=== PATIENT | female | born 1965 ===

== ENCOUNTER → 2019-10-22 09:33 | Outpatient (CLI) | payer OTHER, SELFPAY ==
[2019-10-22 12:01] LABS: Alanine Aminotransferase 27 IU/L (<35); Albumin 4.8 g/dL (3.5-5.0); Albumin Globulin Ratio 1.5 (1.0-2.8); Alkaline Phosphatase 114 U/L (38-126); Aspartate Aminotransferase 32 IU/L (14-36); Bilirubin Total 0.4 mg/dL (0.2-1.3); Bilirubin Unconjugated 0.3 mg/dL (0.0-1.1); Globulin 3.2 g/dL (1.7-4.1); HEMOLYSIS < 15 (0-50)
== END ==
PROVIDERS: PCP General Practice; Referring Provider General Practice; Visit Provider Internal Medicine Gastroenterology
DX: R94.5 Abnormal results of liver function studies (principal)
CPT/HCPCS: 36415; 80076

== ENCOUNTER → 2019-11-07 10:46 | Outpatient (CLI) | payer OTHER, SELFPAY ==
--- NOTE | 2019-11-07 | DI.US.S_ITS ---
PROCEDURE: US PELVIC COMPLETE INDICATIONS: PELVIC PAIN TECHNIQUE: Real-time scanning was performed of the pelvic organs, with image documentation. Additional endovaginal scanning was necessary due to incomplete visualization of the adnexal and endometrial structures by transabdominal scanning. COMPARISON: None. FINDINGS: Transabdominal scanning: Limited scanning through the kidneys shows no hydronephrosis. No pathologic free abdominal or pelvic fluid. Endovaginal scanning: Uterus: The uterus is surgically absent. Ovaries: The right ovary measures 1.5 x 1.5 x 1.1 cm for a volume of 1.3 cc. The left ovary measures 1.8 x 1.2 x 1.7 for a volume of 1.9 cc. No ovarian cysts or solid masses. No suspicious fluid or mass visible in the pelvis. IMPRESSION: 1. Age-appropriate pelvic ultrasound post hysterectomy. Dictated by: Danni Gamino M.D. on 11/07/2019 at 11:53 Approved by: Danni Gamino M.D. on 11/07/2019 at 11:55
--- NOTE | 2019-11-07 | DI.US.S_ITS ---
PROCEDURE: US ABDOMEN COMPLETE INDICATIONS: ABDOMINAL PAIN TECHNIQUE: Real-time scanning was performed of the abdominal and retroperitoneal organs, with image documentation. COMPARISON: None. FINDINGS: Liver: Liver is normal in size and homogeneous in echotexture. Gallbladder: The gallbladder is normal without stones or sludge. Normal wall thickness of 1.0 mm. No pericholecystic fluid. Biliary ducts: Intrahepatic bile ducts are non-dilated. Extrahepatic bile duct caliber measures 5 mm. Normal is 6-7 mm or less in diameter, or 10 mm or less post-cholecystectomy. Pancreas: Visualized portions of the pancreas are sonographically normal. Spleen: Spleen is normal in size and homogeneous in echotexture. Kidneys: Kidneys are normal in size and echotexture. Right kidney measures 9.6 cm long; left kidney measures 9.3 cm long. No hydronephrosis or nephrolithiasis. No solid masses. Aorta: Visualized aorta is normal in caliber at less than 3 cm. Iliacs: Proximal common iliac arteries are normal in caliber at less than 2.5 cm. IVC: Intrahepatic inferior vena cava is patent. Miscellaneous: No free abdominal fluid. IMPRESSION: Normal abdominal ultrasound. Dictated by: Danni Gamino M.D. on 11/07/2019 at 11:55 Approved by: Danni Gamino M.D. on 11/07/2019 at 11:57
== END ==
PROVIDERS: PCP General Practice; Referring Provider Internal Medicine Gastroenterology; Visit Provider Internal Medicine Gastroenterology
DX: R10.2 Pelvic and perineal pain (principal); R10.9 Unspecified abdominal pain; Z90.710 Acquired absence of both cervix and uterus
CPT/HCPCS: 76700; 76830; 76856

== ENCOUNTER → 2019-11-22 14:43 | Outpatient (CLI) | payer OTHER, SELFPAY ==
--- NOTE | 2019-11-22 | DI.ECHO.S_ITS ---
[facility]---------+ [facility] +---------+ : : [address] : : : : [id number] : : : : Phone: [phone] Echocardiogram Report + + :Name: STEVE TALAMANTES Study Date: 11/22/2019 Height: 61 in : :[facility] Weight: 126 lb : : Gender: Female BSA: 1.6 m2 : :: 1965 Age: 54 yrs BP: 114/70 mmHg: :Reason For Study: Palpitations : :Ordering Physician: Kal : :Artie Galeana Performed By: Nely Bond : + + Interpretation Summary The left ventricle is normal in size, wall thickness, and systolic function without any focal wall motion abnormalities with the ejection fraction visually estimated to be 55-60%. Diastolic parameters suggest probable normal left ventricular diastolic function and normal filling pressures. The right ventricle is normal in size and function. The right ventricular systolic pressure is estimated to be at least 25 mmHg based on an estimated right atrial pressure of 3 mm Hg. Both atria are normal in size. There is mild mitral regurgitation and mild tricuspid regurgitation. There is no other significant valvular heart disease. Procedure: A two-dimensional transthoracic echocardiogram with color flow and Doppler was performed. The study quality was technically adequate. There is no prior echocardiogram noted for this patient. The patient was in normal sinus rhythm during the exam. Left Ventricle: The left ventricle is normal in size, wall thickness, and systolic function without any focal wall motion abnormalities. There is no ventricular septal defect visualized. The ejection fraction is estimated to be 55-60%. Diastolic parameters suggest probable normal left ventricular diastolic function and normal filling pressures. Right Ventricle: The right ventricle is normal in size and function. Atria: Both atria are normal in size. The interatrial septum is intact with no evidence for an atrial septal defect. There is no Doppler evidence for an interatrial shunt. Mitral Valve: The mitral valve leaflets appear mildly thickened, but open well. There is mild mitral regurgitation. Aortic Valve: The aortic valve is normal in structure and function. The aortic valve is trileaflet. The aortic valve opens well. No aortic regurgitation is present. Tricuspid Valve: The tricuspid valve is not well visualized, but is grossly normal. There is mild tricuspid regurgitation. The right ventricular systolic pressure is estimated to be at least 25 mmHg based on an estimated right atrial pressure of 3 mm Hg. Pulmonic Valve: The pulmonic valve is not well visualized. There is a trace or physiologic amount of pulmonic regurgitation. There is no other significant valvular heart disease. Great Vessels: The aortic root is normal size. The ascending aorta is normal in size. The aortic arch is normal in size. The IVC is of normal diameter and collapses greater than 50% with a sniff. This suggests a low right atrial pressure of 3 mm Hg. Pericardium/ Pleura There is no pericardial effusion. MMode/2D Measurements & Calculations LVIDd: 3.9 cm LVOT diam: 1.8 cm LVIDs: 2.6 cm Ao root diam: 3.1 cm FS: 34.3 % asc Aorta Diam: 3.1 cm EPSS: 0.50 cm Ao Arch Diam (Prox Trans): 2.6 cm IVSd: 0.64 cm LVPWd: 0.65 cm LV pinto. diameter/BSA (cm/m^2): 2.5 LV sys. diameter/BSA (cm/m^2): 1.7 LA A2 area: 15.4 cm2 RA long axis: 3.7 cm LA A4 area: 14.0 cm2 RA area: 13.1 cm2 LA length (vol): 4.6 cm RA vol: 39.7 ml LA vol: 39.5 ml RA : 25.6 ml/m2 LA vol index: 25.4 ml/m2 IVC diam: 1.5 cm RVD1 (basal): 3.2 cm RVD2 (mid): 2.3 cm TAPSE: 1.8 cm Doppler Measurements & Calculations Ao V2 max: 107.7 cm/sec LVOT Max Arcenio: 81.3 cm/sec Ao V2 mean: 73.4 cm/sec LV V1 max P.6 mmHg Ao max P.6 mmHg LV V1 VTI: 16.4 cm Ao mean P.4 mmHg THEODORA(I,D): 1.9 cm2 Ao V2 VTI: 21.4 cm THEODROA(V,D): 1.9 cm2 sev ratio: 0.77 THEODORA indexed to BSA (cm^2/m^2): 1.2 MV E max arcenio: 78.1 cm/sec TR max arcenio: 232.8 cm/sec MV A max arcenio: 65.4 cm/sec TR max P.7 mmHg MV E/A: 1.2 PA V2 max: 64.7 cm/sec Med Peak E' Arcenio: 8.4 cm/sec PA V2 mean: 42.8 cm/sec E/E' med: 9.3 PA mean P.82 mmHg Lat Peak E' Arcenio: 15.3 cm/sec PA Accel Time: 0.10 sec E/E' lat: 5.1 E/e' average: 7.2 MV dec time: 0.14 sec MV P1/2t: 41.1 msec MV P1/2t max arcenio: 78.1 cm/sec SV(LVOT): 40.8 ml MVA(P1/2t): 5.3 cm2 Reading Physician:TATYANA
== END ==
PROVIDERS: PCP General Practice; Referring Provider Hospitalist; Visit Provider Hospitalist
DX: I08.1 Rheumatic disorders of both mitral and tricuspid valves (principal); R00.2 Palpitations
CPT/HCPCS: 93306

== ENCOUNTER → 2022-03-06 09:31 | Outpatient (CLI) | payer OTHER, SELFPAY ==
--- NOTE | 2022-03-06 09:32 | DI.MRI.S_ITS ---
PROCEDURE: MR WRIST RT WO CON INDICATIONS: RIGHT WRIST PAIN TECHNIQUE: Noncontrast coronal proton density fast spin echo and T2 fast spin echo with fat saturation; coronal 3-D gradient echo, axial T1 spin echo and T2 fast spin echo with fat saturation, sagittal T1 spin echo through the wrist. COMPARISON: None. FINDINGS: Image quality: Excellent. Bones and cartilage: The carpal bones are normally aligned. No bone marrow contusions or fractures. No evidence for avascular necrosis. Mild degenerative changes are seen at the 1st carpometacarpal and 1st metacarpophalangeal joints. There is neutral ulnar variance. Carpal ligaments: The scapholunate and lunotriquetral ligaments appear intact. The pisohamate ligament appears intact. Triangular fibrocartilage complex: Increased signal is seen at the ulnar styloid and ulnar foveal attachments of the distal radioulnar joint, which may represent chronic partial tearing. There is a small amount of fluid in the distal radioulnar joint. The triangle fibrocartilage disc and the radial attachments appear to be intact. Tendons and soft tissues: The carpal tunnel structures appear normal, including the median nerve. The ulnar nerve appears normal within Guyon's canal. There is chronic partial tearing of the extensor carpi ulnaris tendon at the level of the ulnar groove and proximal carpal row. The remaining extensor tendon compartments demonstrate normal morphology, without pathologic tendon sheath fluid. A lobular ganglion cyst is seen at the volar radial aspect of the wrist measuring approximately 10 x 4 x 5 mm. A ganglion cyst at the dorsum of the wrist measures 6 x 4 x 3 mm. IMPRESSION: 1. Suspected partial tearing of the ulnar attachments of the triangular fibrocartilage. Small amount of fluid is seen in the distal radioulnar joint. 2. 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 3. Mild degenerative changes of the 1st carpometacarpal and 1st metacarpophalangeal joints. 4. Small ganglion cyst at the dorsum of the wrist measuring 6 mm and at the volar medial aspect of the wrist measuring 10 mm. Dictated by: Kalin Waite M.D. on 03/07/2022 at 9:19 Approved by: Kalin Waite M.D. on 03/07/2022 at 9:27
== END ==
PROVIDERS: PCP Physician Assistant; Referring Provider Physician Assistant; Visit Provider Physician Assistant
DX: M25.431 Effusion, right wrist (principal); S66.811A Strain of other specified muscles, fascia and tendons at wrist and hand level, right hand, initial encounter; M67.431 Ganglion, right wrist
CPT/HCPCS: 73221

== ENCOUNTER 2023-07-13 15:30 | Emergency (ER) | payer OTHER, SELFPAY ==
[2023-07-13] VITALS (10 sets, daily range): BP systolic 122–161; BP diastolic 62–82; PULSE 80–106; RESP 16–18; TEMP 37.1; O2SAT 86–97; BMI 22.8
[2023-07-13] MEDS: KETOROLAC 30 MG/ML VIAL 15 MG IV (17:03)
[2023-07-13] MEDS: SODIUM CHLORIDE 0.9% 1,000 ML 1000 ML IV (17:03)
[2023-07-13] MEDS: METOCLOPRAMIDE 10 MG/2 ML INJ IV (17:03)
--- NOTE | 2023-07-13 17:33 | ED.HA ---
HPI - Headache General Chief Complaint: Headache Stated Complaint: Neck pain with migraine T-3 Time Seen by Provider: 07/13/23 16:51 Source: patient, RN notes reviewed and old records reviewed Mode of arrival: Ambulatory Limitations: no limitations Related Data Allergies Allergy/AdvReac Type Severity Reaction Status Date / Time meperidine [From Demerol] Allergy Verified 07/13/23 15:52 Review of Systems Review of Systems ROS Unobtainable: All systems reviewed & are unremarkable except as noted in HPI and below Patient History Social History Smoking Status: Never smoker Smoking Status: Never smoker Substance Use Type: does not use Exam Initial Vital Signs Initial Vital Signs: Vital Signs Temperature 98.8 F 07/13/23 15:32 Pulse Rate 104 H 07/13/23 15:32 Respiratory Rate 16 07/13/23 15:32 Blood Pressure 161/81 H 07/13/23 15:32 Pulse Oximetry 97 07/13/23 15:32 Oxygen Delivery Method Room Air 07/13/23 15:32 Course Orders Ordered: ED Orders 07/13/23 17:43 CT angio head and neck Stat CBC Auto Diff [Complete Blood Count AUTO DIFF] Stat CMP [Comprehensive Metabolic Panel] Stat Sodium Chloride (Normal Saline 0.9%) 1,000 mls @ 1,000 mls/hr IV BOLUS ONE Stop: 07/13/23 17:50 Last Admin: 07/13/23 17:03 Dose: 1,000 mls/hr Documented By: PETEY Discontinued Medications Ketorolac Tromethamine (Ketorolac 30 Mg/Ml Vial) 15 mg IV NOW ONE Stop: 07/13/23 16:52 Last Admin: 07/13/23 17:03 Dose: 15 mg Documented By: PETEY Metoclopramide HCl (Metoclopramide 10 Mg/2 Ml Inj) 10 mg IV NOW ONE Stop: 07/13/23 16:52 Last Admin: 07/13/23 17:03 Dose: 10 mg Documented By: PETEY Vital Signs Vital signs: Vital Signs - 8 hr 07/13/23 15:32 Temperature 98.8 F Pulse Rate 104 H Respiratory Rate 16 Blood Pressure 161/81 H Pulse Oximetry 97 Oxygen Delivery Method Room Air Discharge Plan Departure Referrals: Adwoa Leigh PA-C [Primary Care Provider] -
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
--- NOTE | 2023-07-13 17:43 | DI.CT.S_ITS ---
PROCEDURE: CT ANGIO HEAD AND NECK INDICATIONS: left neck pain, migraine, change pattern TECHNIQUE: After the administration of intravenous contrast, 1 mm thick sections acquired from the aortic arch through the [place] of [place]. 3-dimensional dcuypxv-qyafbcosf-ametfjuwaa (MIP) and/or volume rendering reformats were acquired of the central intracranial vasculature and neck separately. For radiation dose reduction, the following was used: automated exposure control, adjustment of mA and/or kV according to patient size. COMPARISON: None. FINDINGS: Image quality: Limited by bolus timing, with venous contamination. BRAIN: CSF spaces: Ventricles are normal in size and shape. Basal cisterns are patent. No extra-axial fluid collections. Brain: No significant abnormality of the brain can be seen. Skull and face: Calvarium and facial bones appear intact, without suspicious lesions. Orbits appear normal. Sinuses: Sinuses and mastoids are clear. HEAD CT ANGIOGRAPHY: Anterior circulation: Intracranial internal carotid arteries are normal in size and flow. The flow within the paired anterior cerebral arteries is normal and symmetric. The flow within the middle cerebral arteries is normal and symmetric. The anterior communicating artery is seen. No aneurysms are seen. Posterior circulation: Visualized portions of the vertebral arteries demonstrate normal caliber, and join to form a normal appearing basilar artery. Flow within the posterior cerebral arteries is normal and symmetric. No aneurysms are seen. NECK CT ANGIOGRAPHY: Carotid system: The great vessels demonstrate a conventional anatomy as they arise from the aortic arch. The origins of the common carotid arteries appear patent. The common carotid arteries demonstrate normal caliber and courses. The bifurcation regions are both widely patent. The internal carotid arteries demonstrate normal calibers and courses. Posterior circulation: The origins of the vertebral arteries both appear widely patent. The more superior extracranial portions of both vertebral arteries also demonstrate normal courses and calibers. They join to form a normal appearing basilar artery. Soft tissues: Visualized neck soft tissues demonstrate no suspicious abnormalities. Bones: No suspicious bony lesions. Visualized cervical spine appears normally aligned. IMPRESSION: CT angiogram within normal limits, without a cause of the patient's presenting history identified. Any quantitative measurements of stenosis were performed using NASCET criteria. Dictated by: Caleb Bennett M.D. on 07/13/2023 at 17:20 Approved by: Caleb Bennett M.D. on 07/13/2023 at 17:21
[2023-07-13] MEDS: DEXAMETHASONE 10 MG/ML VIAL IV (17:52)
--- NOTE | 2023-07-13 18:26 | ED_ITS ---
HPI - Headache General Chief Complaint: Headache Stated Complaint: Neck pain with migraine T-3 Time Seen by Provider: 07/13/23 16:51 Source: patient Mode of arrival: Ambulatory Limitations: no limitations History of Present Illness HPI Narrative: 57-year-old female. Has a history of migraine headaches. Normally takes sumatriptan for this. Has had a headache for the past 3 days. Sumatriptan has not helped her symptoms. She now has left-sided neck discomfort that she describes as ?lightning bolts? that go up the back of her neck and to the left side of her cheek. She denies any fevers. No trauma. Related Data Allergies Allergy/AdvReac Type Severity Reaction Status Date / Time meperidine [From Demerol] Allergy Verified 07/13/23 15:52 Review of Systems Constitutional Constitutional: Reports system reviewed and no additional complaints, except as documented Eyes Eyes: Reports system reviewed and no additional complaints, except as documented ENT Ears, Nose, Mouth, and Throat: Reports system reviewed and no additional complaints, except as documented Musculoskeletal Musculoskeletal: Reports system reviewed and no additional complaints, except as documented Integumentary/Breasts Skin/Breast: Reports system reviewed and no additional complaints, except as documented Neurologic Neurologic: Reports system reviewed and no additional complaints, except as documented Hematologic/Lymphatic On Anticoagulants: No Patient History Social History Smoking Status: Never smoker Smoking Status: Never smoker Substance Use Type: does not use Exam Initial Vital Signs Initial Vital Signs: Vital Signs Temperature 98.8 F 07/13/23 15:32 Pulse Rate 104 H 07/13/23 15:32 Respiratory Rate 16 07/13/23 15:32 Blood Pressure 161/81 H 07/13/23 15:32 Pulse Oximetry 97 07/13/23 15:32 Oxygen Delivery Method Room Air 07/13/23 15:32 Const General: cooperative and comfortable HENMT Head: normal to inspection and normocephalic Resp Effort & Inspection: normal respiratory effort Cardio Rate: regular rate Back/Spine/Pelvis Cervical Spine: cervical muscular tenderness and No cervical spinal tenderness Thoracic/Lumbar Spine: No paraspinal tenderness, No thoraco-lumbar spasm and No thoracic spinal tenderness Skin General: no rashes or lesions noted Neuro General: patient alert and patient awake Extrem General: capillary refill normal Course Orders Ordered: ED Orders 07/13/23 17:43 CT angio head and neck Stat 07/13/23 18:15 CBC Auto Diff [Complete Blood Count AUTO DIFF] Stat CMP [Comprehensive Metabolic Panel] Stat Discontinued Medications Dexamethasone (Dexamethasone 10 Mg/Ml Vial) 10 mg IV NOW ONE Stop: 07/13/23 17:49 Last Admin: 07/13/23 17:52 Dose: 10 mg Documented By: PETEY Hydromorphone HCl (Hydromorphone 0.5 Mg Inj) 0.5 mg IV NOW ONE Stop: 07/13/23 18:37 Last Admin: 07/13/23 18:44 Dose: 0.5 mg Documented By: PETEY Sodium Chloride (Normal Saline 0.9%) 1,000 mls @ 1,000 mls/hr IV BOLUS ONE Stop: 07/13/23 17:50 Last Infusion: 07/13/23 18:07 Dose: Infused Documented By: Admin: 07/13/23 17:03 Dose: 1,000 mls/hr Documented By: PETEY Ketorolac Tromethamine (Ketorolac 30 Mg/Ml Vial) 15 mg IV NOW ONE Stop: 07/13/23 16:52 Last Admin: 07/13/23 17:03 Dose: 15 mg Documented By: PETEY Metoclopramide HCl (Metoclopramide 10 Mg/2 Ml Inj) 10 mg IV NOW ONE Stop: 07/13/23 16:52 Last Admin: 07/13/23 17:03 Dose: 10 mg Documented By: PETEY Vital Signs Vital signs: Vital Signs - 8 hr 07/13/23 15:32 07/13/23 15:36 07/13/23 16:00 Temperature 98.8 F Pulse Rate 104 H 106 H 95 H Respiratory Rate 16 Blood Pressure 161/81 H Pulse Oximetry 97 96 93 Oxygen Delivery Method Room Air 07/13/23 16:39 07/13/23 16:40 07/13/23 16:40 Temperature Pulse Rate 96 H 97 H Respiratory Rate Blood Pressure 137/82 Pulse Oximetry 96 97 Oxygen Delivery Method 07/13/23 17:05 07/13/23 17:05 07/13/23 17:30 Temperature Pulse Rate 89 93 H Respiratory Rate Blood Pressure 125/64 Pulse Oximetry 97 90 L Oxygen Delivery Method 07/13/23 18:45 07/13/23 19:00 Temperature Pulse Rate 91 H 80 Respiratory Rate 18 Blood Pressure Pulse Oximetry 86 L 96 Oxygen Delivery Method MDM - Headache Lab Data Attestation: I reviewed the patient's lab results. 07/13/23 18:15 07/13/23 18:15 Labs: Lab Results 07/13/23 Range/Units 18:15 WBC 4.0 L (4.5-11.0) X10^3/uL RBC 4.42 (4.0-5.2) X10^6/uL Hgb 12.8 (12.0-16.0) g/dL Hct 38.2 (36-46) % MCV 86.4 (80-100) fL MCH 29.0 (26-34) PG MCHC 33.6 (30-36) % RDW 13.7 (11.6-14.8) % Plt Count 188 (150-400) X10^3/uL Neut % (Auto) 43.5 L (50-75) % Lymph % (Auto) 42.6 H (25-40) % [place] % (Auto) 12.8 (3-14) % Eos % (Auto) 0.6 L (2-4) % Baso % (Auto) 0.5 (0-2) % Neut # (Auto) 1700 (4694-6271) /uL Lymph # (Auto) 1700 (8516-1442) /uL [place] # (Auto) 500 (0-900) /uL Eos # (Auto) 0 (0-450) /uL Baso # (Auto) 0 (0-100) /uL Sodium 137 (137-145) mmol/L Potassium 3.8 (3.4-5.1) mmol/L Chloride 105 (98-107) mmol/L Carbon Dioxide 25 (22-32) mmol/L BUN 14 (7-17) mg/dL Creatinine 0.61 (0.52-1.04) mg/dL Estimated GFR > 60 (>60) mL/min BUN/Creatinine Ratio 23.0 H (6-22) Glucose 107 H (70-100) mg/dL Calcium 8.6 (8.4-10.2) mg/dL Total Bilirubin 0.4 (0.2-1.3) mg/dL AST 52 H (14-36) IU/L ALT 81 H (<35) IU/L Alkaline Phosphatase 108 (38-126) U/L Total Protein 6.8 (6.3-8.2) g/dL Albumin 3.7 (3.5-5.0) g/dL Globulin 3.1 (1.7-4.1) g/dL Albumin/Globulin Ratio 1.2 (1.0-2.8) Imaging Data CTA - brain/neck: Radiologist's Impression: PROCEDURE: CT ANGIO HEAD AND NECK INDICATIONS: left neck pain, migraine, change pattern TECHNIQUE: After the administration of intravenous contrast, 1 mm thick sections acquired from the aortic arch through the [place] of [place]. 3-dimensional cykruro-gwauplzab-jmgzpvivdv (MIP) and/or volume rendering reformats were acquired of the central intracranial vasculature and neck separately. For radiation dose reduction, the following was used: automated exposure control, adjustment of mA and/or kV according to patient size. COMPARISON: None. FINDINGS: Image quality: Limited by bolus timing, with venous contamination. BRAIN: CSF spaces: Ventricles are normal in size and shape. Basal cisterns are patent. No extra-axial fluid collections. Brain: No significant abnormality of the brain can be seen. Skull and face: Calvarium and facial bones appear intact, without suspicious lesions. Orbits appear normal. Sinuses: Sinuses and mastoids are clear. HEAD CT ANGIOGRAPHY: Anterior circulation: Intracranial internal carotid arteries are normal in size and flow. The flow within the paired anterior cerebral arteries is normal and symmetric. The flow within the middle cerebral arteries is normal and symmetric. The anterior communicating artery is seen. No aneurysms are seen. Posterior circulation: Visualized portions of the vertebral arteries demonstrate normal caliber, and join to form a normal appearing basilar artery. Flow within the posterior cerebral arteries is normal and symmetric. No aneurysms are seen. NECK CT ANGIOGRAPHY: Carotid system: The great vessels demonstrate a conventional anatomy as they arise from the aortic arch. The origins of the common carotid arteries appear patent. The common carotid arteries demonstrate normal caliber and courses. The bifurcation regions are both widely patent. The internal carotid arteries demonstrate normal calibers and courses. Posterior circulation: The origins of the vertebral arteries both appear widely patent. The more superior extracranial portions of both vertebral arteries also demonstrate normal courses and calibers. They join to form a normal appearing basilar artery. Soft tissues: Visualized neck soft tissues demonstrate no suspicious abnormalities. Bones: No suspicious bony lesions. Visualized cervical spine appears normally aligned. IMPRESSION: CT angiogram within normal limits, without a cause of the patient's presenting history identified. Any quantitative measurements of stenosis were performed using NASCET criteria. MDM Narrative Medical decision making narrative: Patient reports a complete resolution of headache after medications here in the ER. She is still having some ?twinges? in her neck although CT scan is unremarkable and exam was unremarkable. Low suspicion for CVA/TIA. No vessel abnormalities noted on the CT scan. Will discharge patient home with instructions to contact primary doctor for follow-up. Discharge Plan Departure Patient Disposition: Home Clinical Impression: Headache Instructions: DI for Headache Activity Restrictions/Additional Instructions: Recommend that you continue to take all of your medications as directed. Can continue to take the sumatriptan as needed for future headaches. Contact your primary provider for a follow-up. Return to the emergency department for new or worsening symptoms. Referrals: Adwoa Leigh PA-C [Primary Care Provider] - Stand Alone Forms: Patient Portal/API
[2023-07-13 18:41] LABS: Add Manual Diff / Slide Review NO; Basophils Absolute Auto 0 /uL (0-100); Basophils Percent Auto 0.5 % (0-2); Eosinophils Absolute Auto 0 /uL (0-450); Eosinophils Percent Auto 0.6 % (2-4); Hematocrit 38.2 % (36-46); Hemoglobin 12.8 g/dL (12.0-16.0); Lymphocytes Absolute Auto 1700 /uL (1100-4500); Lymphocytes Percent Auto 42.6 % (25-40); Mean Corpuscular HGB Conc 33.6 % (30-36); Mean Corpuscular Volume 86.4 fL (80-100); Monocytes Absolute Auto 500 /uL (0-900); Monocytes Percent Auto 12.8 % (3-14); Neutrophils Absolute Auto 1700 /uL (1500-7000); Neutrophils Percent Auto 43.5 % (50-75); Platelet Count 188 X10^3/uL (150-400); Red Blood Cell Count 4.42 X10^6/uL (4.0-5.2); Red Cell Distribution Width 13.7 % (11.6-14.8)
[2023-07-13 18:43] LABS: Alanine Aminotransferase 81 IU/L (<35); Albumin 3.7 g/dL (3.5-5.0); Albumin Globulin Ratio 1.2 (1.0-2.8); Alkaline Phosphatase 108 U/L (38-126); Aspartate Aminotransferase 52 IU/L (14-36); Bilirubin Total 0.4 mg/dL (0.2-1.3); Blood Urea Nitrogen 14 mg/dL (7-17); Calcium 8.6 mg/dL (8.4-10.2); Carbon Dioxide 25 mmol/L (22-32); Chloride 105 mmol/L (98-107); Estimated Glomerular Filt Rate > 60 mL/min (>60); Globulin 3.1 g/dL (1.7-4.1); Glucose 107 mg/dL (70-100); HEMOLYSIS < 15 (0-50); Potassium 3.8 mmol/L (3.4-5.1); Sodium 137 mmol/L (137-145); Total Protein 6.8 g/dL (6.3-8.2)
[2023-07-13] MEDS: HYDROMORPHONE 0.5 MG INJ IV (18:44)
--- NOTE | 2023-07-13 18:58 | PC.NURSE ---
patient was given dilaudid for pain and she felt much better. Her 02 saturation went down to 86% on RA. She was placed on 1L NC and her O2 saturation came back up to 95%.
== END 2023-07-13 19:25 | disposition home or self-care (01) ==
PROVIDERS: Emergency Medicine; Emergency Provider Emergency Medicine; PCP Physician Assistant
DX: R51.9 Headache, unspecified (principal); M54.2 Cervicalgia
CPT/HCPCS: 36415; 70496; 70498; 80053; 85025; 96374; 96375; 99284; 99285; J1100; J1170; J1885; J2765